=== PATIENT | male | born 1990 | race Caucasian/White ===

== ENCOUNTER 2020-12-17 15:05 | Emergency (ER) | payer OTHER ==
[2020-12-17] MEDS ORDERED: Sodium Chloride 0.9% 10 ML Syringe FLUSH PRN (16:00)
[2020-12-17] MEDS ORDERED: Sodium Chloride 0.9% 1,000 ML IV ONE (16:00)
[2020-12-17 16:54] LABS: ACETAMINOPHEN 0 ug/mL (10-30)
--- NOTE | 2020-12-17 17:35 | EDM.PDOCBH ---
ED HPI GENERAL MEDICAL PROBLEM - General Chief Complaint: Behavioral/Psych Stated Complaint: ALCOHOL DETOX Time Seen by Provider: 12/17/20 15:36 Source of Information: Reports: Patient History Limitations: Reports: No Limitations - History of Present Illness INITIAL COMMENTS - FREE TEXT/NARRATIVE: 30-year-old male presents to the emergency department accompanied by his . He states that she forced him to come here as he is a mean drunk. He states that he drinks several times a week, hard liquor, but he will not quantify how much. He states he drinks enough to blackout. Per his she states that today and on several occasions when he gets angry with her and he is drinking he threatens to kill himself and states he does have a loaded breath and at home. Although while in the emergency department today he states he would never do that and he threatens just to make her angry. She states she has been living with her daughter in [place] as his drinking has gotten so bad she does not want to be around him. He states he has been drinking heavily for as long as he can remember. When asked if he has ever tried to stop drinking for more than a day he says he has not. He has not had DTs or seizures in the past when not drinking. He is very agitated and at times states that he is going to walk out however his tells him that she will not let him see his daughter anymore if he does not get help. He denies suicidal ideations and he denies any plan to harm himself or others. He initially states he has not been drinking today however upon further questioning he states he has drank a little today. He denies smoking or recreational drug use. He denies any significant past medical history and does not take any prescription medications. He has agreed to allow us to check labs on him and then have the [facility] come over to evaluate him however within the same breath he will then state that he has not stay here. I have ordered labs to include a CBC, CMP, C-reactive protein, magnesium level, urinalysis with micro and culture if indicated, urine drug screen, blood alcohol level, salicylate level, acetaminophen level and a TSH. Once we have lab work back we will call the [facility] to come and evaluate the patient. - Related Data Allergies Allergy/AdvReac Type Severity Reaction Status Date / Time No Known Allergies Allergy Verified 12/17/20 15:34 Home Meds: Home Meds LORazepam [Ativan] 1 mg PO TID #18 tablet 12/17/20 [Rx] Ondansetron [Zofran ODT] 4 mg PO Q6H #8 tab.dis 12/17/20 [Rx] Past Medical History Neurological History: Reports: Brain Injury, Head Trauma - Infectious Disease History Infectious Disease History: Reports: None Social & Family History - Tobacco Use Tobacco Use Status *Q: Never Tobacco User Second Hand Smoke Exposure: No - Recreational Drug Use Recreational Drug Use: No ED ROS GENERAL - Review of Systems Review Of Systems: Comprehensive ROS is negative, except as noted in HPI. ED EXAM, BEHAVIORAL HEALTH - Physical Exam Exam: See Below Exam Limited By: Other (Agitated at times) General Appearance: Alert, WD/WN, No Apparent Distress Eye Exam: Bilateral Eye: EOMI Ears: Normal External Exam, Hearing Grossly Normal Nose: Normal Inspection Throat/Mouth: Normal Inspection, Normal Lips, Normal Voice, No Airway Compromise Head: Atraumatic Neck: Normal Inspection, Supple Respiratory/Chest: No Respiratory Distress, Lungs Clear, Normal Breath Sounds, No Accessory Muscle Use, Chest Non-Tender Cardiovascular: Normal Peripheral Pulses, Regular Rate, Rhythm, No Edema, No Murmur GI/Abdominal: Normal Bowel Sounds, Soft, Non-Tender, No Distention (Male) Exam: Deferred Rectal (Males) Exam: Deferred Back Exam: Normal Inspection Extremities: Normal Inspection, Normal Range of Motion, Non-Tender, No Pedal Edema, Normal Capillary Refill Neurological: Alert, Normal Cognition, Oriented x 3. No: Normal Mood/Affect (Easily agitated) Psychiatric: Alert, Normal Cognition, Oriented, Agitated Skin Exam: Warm, Dry, Intact, Normal color, No rash COURSE, BEHAVIORAL HEALTH COMP - Course Vital Signs: Last Vital Signs Temp 97.8 F 12/17/20 15:32 Pulse 125 H 12/17/20 15:32 Resp 16 12/17/20 15:32 BP 146/92 H 12/17/20 15:32 Pulse Ox 93 L 12/17/20 15:32 Orders, Labs, Meds: Active Orders 24 hr Category Date Time Status DRUG SCREEN, URINE [URCHEM] Stat Lab 12/17/20 16:00 Ordered UA RFX SANGITA AND CULT IF INDIC [URIN] Stat Lab 12/17/20 16:00 Ordered Sodium Chloride 0.9% [Saline Flush] Med 12/17/20 16:00 Active 10 ml FLUSH ASDIRECTED PRN Saline Lock Insert [OM.PC] Stat Oth 12/17/20 16:00 Ordered Medication Orders Sodium Chloride (Sodium Chloride 0.9% 10 Ml Syringe) 10 ml FLUSH ASDIRECTED PRN PRN Reason: Keep Vein Open Last Admin: 12/17/20 16:22 Dose: 10 ml Documented by: SABINA Laboratory Tests 12/17/20 12/17/20 12/17/20 Range/Units 16:15 16:15 16:15 WBC 7.05 (4.23-9.07) K/mm3 RBC 5.37 (4.63-6.08) M/mm3 Hgb 16.6 (13.7-17.5) gm/dl Hct 50.0 (40.1-51.0) % MCV 93.1 H (79.0-92.2) fl MCH 30.9 (25.7-32.2) pg MCHC 33.2 (32.2-35.5) g/dl RDW Std Deviation 42.4 (35.1-43.9) fL Plt Count 249 (163-337) K/mm3 MPV 9.0 L (9.4-12.3) fl Neut % (Auto) 79.5 H (34.0-67.9) % Lymph % (Auto) 14.9 L (21.8-53.1) % [place] % (Auto) 5.1 L (5.3-12.2) % Eos % (Auto) 0.1 L (0.8-7.0) Baso % (Auto) 0.1 (0.1-1.2) % Neut # (Auto) 5.60 H (1.78-5.38) K/mm3 Lymph # (Auto) 1.05 L (1.32-3.57) K/mm3 [place] # (Auto) 0.36 (0.30-0.82) K/mm3 Eos # (Auto) 0.01 L (0.04-0.54) K/mm3 Baso # (Auto) 0.01 (0.01-0.08) K/mm3 Sodium 147 H (136-145) mEq/L Potassium 3.7 (3.5-5.1) mEq/L Chloride 108 H (98-107) mEq/L Carbon Dioxide 20 L (21-32) mEq/L Anion Gap 22.7 H (5-15) BUN 18 (7-18) mg/dL Creatinine 1.1 (0.7-1.3) mg/dL Est Cr Clr Drug Dosing 115.20 mL/min Estimated GFR (MDRD) > 60 (>60) mL/min BUN/Creatinine Ratio 16.4 (14-18) Glucose 231 H (70-99) mg/dL Calcium 8.6 (8.5-10.1) mg/dL Magnesium 1.9 (1.8-2.4) mg/dL Total Bilirubin 0.1 L (0.2-1.0) mg/dL AST 97 H (15-37) U/L ALT 103 H (16-63) U/L Alkaline Phosphatase 61 (46-116) U/L Total Protein 7.4 (6.4-8.2) g/dl Albumin 4.1 (3.4-5.0) g/dl Globulin 3.3 gm/dL Albumin/Globulin Ratio 1.2 (1-2) TSH 3rd Generation 0.600 (0.358-3.74) uIU/mL Salicylates 1.1 L (2.8-20) mg/dL Acetaminophen 0 L (10-30) ug/mL Ethyl Alcohol 0.28 (0.00) gm% Medications Generic Name Dose Route Start Last Admin Trade Name Freq PRN Reason Stop Dose Admin Sodium Chloride 10 ml 12/17/20 16:00 12/17/20 16:22 Sodium Chloride 0.9% 10 Ml Syringe FLUSH 10 ml ASDIRECTED PRN Administration Keep Vein Open Discontinued Medications Generic Name Dose Route Start Last Admin Trade Name Freq PRN Reason Stop Dose Admin Sodium Chloride 1,000 mls @ 999 mls/hr 12/17/20 16:00 12/17/20 16:22 Normal Saline IV 12/17/20 17:00 Not Given ONETIME ONE Re-Assessment/Re-Exam: Hematology reveals a WBC of 7.05, hemoglobin 16.6, hematocrit 50.0, platelet count 249 Chemistry reveals a sodium of 147, potassium 3.7, chloride 108, carbon dioxide 20, anion gap 22.7, BUN 18, creatinine 1.1, glucose 231, magnesium 1.9, total bilirubin 0.1, AST 97, ALT 103, alk phos 61, TSH 0.600 Toxicology shows salicylate level of 1.1, acetaminophen level of 0, and ethyl alcohol 0.28 I had ordered for the patient to receive a liter of normal saline IV however nursing staff reports to me that the patient has refused this. We will call the [facility] and see if they will come over and evaluate the patient. Medical Clearance: 12/17/20 18:48 [facility] staff here to evaluate patient. They state that he is appropriate and that they will take him to the [facility]. Patient is agreeable to go. Patient will be discharged with [facility] staff will be giving him a ride. Departure - Departure Time of Disposition: 18:48 Disposition: Home, Self-Care 01 Condition: Good Clinical Impression: Alcohol abuse - Discharge Information Prescriptions: LORazepam [Ativan] 1 mg PO TID #18 tablet Ondansetron [Zofran ODT] 4 mg PO Q6H #8 tab.dis Instructions: Alcohol Use Disorder Referrals: PCP,None [Primary Care Provider] - Forms: ED Department Discharge Additional Instructions: You seen in the emergency department today after you have been drinking heavily for quite some time. Labs were completed which showed you had a blood alcohol of 0.28. Your liver enzymes were elevated which is likely due to your drinking. As discussed, if you drink enough you will permanently damage her liver. [facility] was here to evaluate you and agreed to take you into the [facility]. Should your condition worsen or change, do not hesitate returning to the emergency department. You received an Ativan tablet while in the emergency department to help with symptoms of detoxing from alcohol. A prescription has been sent to your pharmacy [facility]. For Ativan 1 mg 3 times daily for 3 days then Ativan 1 mg twice daily for 3 days then Ativan 1 mg at bedtime for 3 days. A prescription has also been sent for nausea medication called Zofran ODT. You can take 1 tab every 6 hours for the next 2 days. Sepsis Event Note (ED) - Evaluation Sepsis Screening Result: No Definite Risk - Focused Exam Vital Signs: Vital Signs Temp Pulse Resp BP Pulse Ox 12/17/20 15:32 97.8 F 125 H 16 146/92 H 93 L - My Orders Last 24 Hours: My Active Orders 12/17/20 16:00 DRUG SCREEN, URINE [URCHEM] Stat UA RFX SANGITA AND CULT IF INDIC [URIN] Stat Sodium Chloride 0.9% [Saline Flush] 10 ml FLUSH ASDIRECTED PRN Saline Lock Insert [OM.PC] Stat - Assessment/Plan Last 24 Hours: My Active Orders 12/17/20 16:00 DRUG SCREEN, URINE [URCHEM] Stat UA RFX SANGITA AND CULT IF INDIC [URIN] Stat Sodium Chloride 0.9% [Saline Flush] 10 ml FLUSH ASDIRECTED PRN Saline Lock Insert [OM.PC] Stat
[2020-12-17] MEDS ORDERED: LORazepam 1 MG Tab PO ONE (18:55)
== END 2020-12-17 19:10 | disposition home or self-care (01) ==
LOC: JD.ED 15:05
DX: F10.10 Alcohol abuse, uncomplicated (principal); Y90.5 Blood alcohol level of 100-119 mg/100 ml
CPT/HCPCS: 36415; 80053; 80143; 80179; 80307; 83735; 84443; 85025; 99284; A9270; 99283

== ENCOUNTER 2024-03-01 19:43 | Emergency (ER) | payer BC, OTHER ==
[2024-03-01 20:18] LABS: BASOPHILS PERCENT AUTO 0.3 % (0.0-1.0); EOSINOPHILS ABSOLUTE AUTO 0.1 K/mm3 (0.0-0.4); EOSINOPHILS PERCENT AUTO 1.3 % (0.0-6.0); HEMATOCRIT 46.2 % (42.0-52.0); HEMOGLOBIN 15.8 gm/dl (14.0-18.0); IMMATURE GRAN ABSOLUTE AUTO 0.01 K/mm3 (0.00-0.05); IMMATURE GRAN PERCENT AUTO 0.1 % (0.0-0.4); LYMPHOCYTES ABSOLUTE AUTO 4.2 K/mm3 (1.0-4.8); LYMPHOCYTES PERCENT AUTO 55.7 % (24.0-44.0); MEAN CORPUSCULAR HEMOGLOBIN 31.1 pg (28.0-32.0); MEAN CORPUSCULAR HGB CONC 34.2 g/dl (32.0-36.0); MEAN CORPUSCULAR VOLUME 90.9 fl (83.0-99.0); MEAN PLATELET VOLUME 9.1 fl (9.4-12.4); MONOCYTES ABSOLUTE AUTO 0.5 K/mm3 (0.0-0.8); MONOCYTES PERCENT AUTO 6.7 % (0.0-8.0); NEUTROPHILS ABSOLUTE AUTO 2.7 K/mm3 (1.8-7.7); NEUTROPHILS PERCENT AUTO 35.9 % (41.0-71.0); PLATELET COUNT,PLT 227 K/mm3 (150-400); RED BLOOD CELL COUNT 5.08 M/mm3 (4.52-5.90); WHITE BLOOD CELL COUNT,WBC 7.51 K/mm3 (3.9-11.3)
[2024-03-01] MEDS: LORazepam 2 MG/ML SDV IVPUSH ONE (20:18)
[2024-03-01] MEDS: Metoclopramide 10 MG/2 ML SDV IVPUSH ONE (20:19)
[2024-03-01] MEDS: Dextrose 5%-Lactated Ringers 1,000 ML IV SCH (20:23)
[2024-03-01 20:37] LABS: INR 0.98; PROTHROMBIN TIME 10.4 SECONDS (9.7-12.0)
[2024-03-01 20:38] LABS: PTT,PARTIAL THROMBOPLSTIN TIME 27.9 SECONDS (21.7-31.4)
[2024-03-01 20:45] LABS: LACTIC ACID 1.6 mmol/L (0.4-2.0)
[2024-03-01 20:50] LABS: A/G RATIO 1.1 (1-2); ALANINE AMINOTRANSFERASE,ALT 67 U/L (16-63); ALBUMIN 3.9 g/dl (3.4-5.0); ALKALINE PHOSPHATASE 85 U/L (46-116); ANION GAP 15.6 (5-15); ASPARTATE AMNIOTRANSFERASE,AST 89 U/L (15-37); BILIRUBIN TOTAL 0.2 mg/dL (0.2-1.0); BLOOD UREA NITROGEN,BUN 9 mg/dL (7-18); CALCIUM 8.3 mg/dL (8.5-10.1); CARBON DIOXIDE,CO2 25 mEq/L (21-32); CHLORIDE,CL 107 mEq/L (98-107); ESTIMATED GFR 102 mL/min (>60); ETHANOL BLOOD MEDICAL 0.47 gm% (0.00); GLUCOSE RANDOM 104 mg/dL (70-99); LIPASE 118 U/L (16-77); MAGNESIUM 1.6 mg/dL (1.8-2.4); POTASSIUM,K 3.6 mEq/L (3.5-5.1); PROTEIN TOTAL,TP 7.5 g/dl (6.4-8.2); SODIUM,NA 144 mEq/L (136-145)
[2024-03-01 20:57] LABS: C-REACTIVE PROTEIN < 0.05 mg/dL (<0.30)
[2024-03-01] MEDS: Magnesium Sulfate/Water Premix 4 GM in Premix Bag 1 BAG IV ONE (21:15)
[2024-03-01] MEDS: Dextrose 5%-Lact Ringers w/KCl 1,000 ML IV SCH (21:50)
[2024-03-02] MEDS: LORazepam 2 MG/ML SDV IVPUSH ONE (00:22)
== END 2024-03-02 02:38 | disposition left against medical advice (07) ==
LOC: JD.ED 19:43
DX: F10.120 Alcohol abuse with intoxication, uncomplicated (principal); Y90.8 Blood alcohol level of 240 mg/100 ml or more
CPT/HCPCS: 36415; 80053; 80307; 83605; 83690; 83735; 85025; 85610; 85730; 86140; 96361; 96365; 96366; 96368; 96375; 96376; 99284; J2060; J2765; J3475; J3480; J7121